=== PATIENT | male | born 1995 | race American Indian/Alaskan Native ===

== ENCOUNTER 2019-03-28 23:35 | Emergency (ER) | payer SELFPAY ==
[2019-03-28] MEDS ORDERED: SODIUM CHLORIDE 0.9% 1000 ML 1,000 ML IV ONE (23:56)
[2019-03-28] MEDS ORDERED: LORazepam 2 MG/ML VIAL IV ONE (23:56)
--- NOTE | 2019-03-29 | Emergency Department Report ---
ED Seizure HPI - General Chief Complaint: Seizure Stated Complaint: SEIZURES Time Seen by Provider: 03/28/19 23:50 Source: family Mode of arrival: Wheelchair Limitations: Altered Mental Status - History of Present Illness Initial Comments: Patient is 24-year-old male with no significant past medical history. Patient brought to the emergency room by his friend. She stated that patient had 2 episode of seizure described as generalized tonic colonic. Patient friend stated that patient had history of heavy drug abuse. Patient was altered mental status. Patient is responding to voice stimuli but not cooperative. MD Complaint: possible seizure -: unknown Description of Episode: loss of consciousness, tonic-clonic movement, post-event confusion Witnessed:: Yes Trauma: No Seizure History: none - Related Data Allergies Allergy/AdvReac Type Severity Reaction Status Date / Time Unable to Assess Allergy Unverified 03/29/19 00:14 ED Review of Systems ROS: Stated complaint: SEIZURES Other details as noted in HPI Comment: Unobtainable due to pts medical conditions ED Past Medical Hx - Past Medical History Previous Medical History?: Yes Additional medical history: Heavy drug use - Social History Smoking Status: Unknown if ever smoked Substance Use Type: Alcohol, Cocaine ED Physical Exam - General Limitations: Altered Mental Status General appearance: alert, in no apparent distress - Head Head exam: Present: atraumatic, normocephalic, normal inspection - Eye Pupils: Present: miosis - ENT ENT exam: Present: normal exam, normal orophraynx, mucous membranes moist - Neck Neck exam: Present: normal inspection, full ROM. Absent: tenderness, meningismus, lymphadenopathy, thyromegaly - Respiratory Respiratory exam: Present: normal lung sounds bilaterally - Cardiovascular Cardiovascular Exam: Present: regular rate, normal rhythm, normal heart sounds - GI/Abdominal GI/Abdominal exam: Present: soft, normal bowel sounds. Absent: distended, tenderness, guarding, rebound, rigid, organomegaly, mass, bruit, pulsatile mass, hernia - Extremities Exam Extremities exam: Present: normal inspection, full ROM, normal capillary refill. Absent: tenderness, pedal edema, joint swelling, calf tenderness - Back Exam Back exam: Present: normal inspection, full ROM. Absent: CVA tenderness (R), CVA tenderness (L), muscle spasm, paraspinal tenderness, vertebral tenderness - Neurological Exam Neurological exam: Present: altered, CN II-XII intact. Absent: motor sensory deficit - Skin Skin exam: Present: warm, intact, normal color ED Course Vital Signs 03/28/19 03/28/19 03/28/19 23:39 23:45 23:46 Temperature 98 F Pulse Rate 71 61 Respiratory 23 16 Rate Blood Pressure 121/64 121/64 O2 Sat by Pulse 100 100 Oximetry 03/29/19 03/29/19 03/29/19 00:00 00:28 00:30 Temperature Pulse Rate 67 79 61 Respiratory 21 21 18 Rate Blood Pressure 118/76 118/76 99/72 O2 Sat by Pulse 100 100 100 Oximetry 03/29/19 03/29/19 03/29/19 00:46 01:00 01:16 Temperature Pulse Rate 59 L 81 87 Respiratory 13 17 23 Rate Blood Pressure 99/72 116/71 116/71 O2 Sat by Pulse 100 100 99 Oximetry 03/29/19 03/29/19 03/29/19 01:30 01:46 02:00 Temperature Pulse Rate 84 79 68 Respiratory 22 23 34 H Rate Blood Pressure 110/81 110/81 117/62 O2 Sat by Pulse 99 100 100 Oximetry 03/29/19 03/29/19 03/29/19 02:16 02:30 02:46 Temperature Pulse Rate 78 57 L 67 Respiratory 21 21 21 Rate Blood Pressure 117/62 105/68 105/68 O2 Sat by Pulse 100 99 99 Oximetry 03/29/19 03/29/19 03/29/19 03:00 03:16 03:30 Temperature Pulse Rate 69 75 62 Respiratory 21 21 20 Rate Blood Pressure 109/62 109/62 121/76 O2 Sat by Pulse 99 99 100 Oximetry 03/29/19 03:46 Temperature Pulse Rate 68 Respiratory 22 Rate Blood Pressure 121/76 O2 Sat by Pulse 99 Oximetry ED Medical Decision Making - Lab Data Result diagrams: 03/29/19 00:29 03/29/19 00:29 - EKG Data -: EKG Interpreted by [facility] EKG shows normal: sinus rhythm Rate: normal - EKG Data Interpretation: no acute changes - Radiology Data Radiology results: report reviewed - Medical Decision Making Patient is 24-year-old male with no significant past medical history. Patient brought to the emergency room by his friend. She stated that patient had 2 episode of seizure described as generalized tonic colonic. Patient friend stated that patient had history of heavy drug abuse. Patient was altered mental status. Patient is responding to voice stimuli but not cooperative. No seizure activity observed in the ER. Labs reviewed and is unremarkable except for positive cocaine and marijuana. CT brain is negative for acute finding. Patient and his cousin strongly advised to follow-up with a jesenia rologist in the next 2-3 days and to attend to the ER if patient develop any new seizure. Critical care attestation.: If time is entered above; I have spent that time in minutes in the direct care of this critically ill patient, excluding procedure time. ED Disposition Clinical Impression: Seizure, Cocaine abuse Disposition: DC-01 TO HOME OR SELFCARE Is pt being admited?: No Condition: Stable Instructions: New-Onset Seizure in Adults (ED) Referrals: LUDIVINA TRENT MD [Primary Care Provider] - 3-5 Days
--- NOTE | 2019-03-29 00:41 | Cat Scan Report ---
CT HEAD WITHOUT CONTRAST INDICATION / CLINICAL INFORMATION: Seizure. Altered mental status. TECHNIQUE: All CT scans at this location are performed using CT dose reduction for ALARA by means of automated e xposure control. COMPARISON: None available. FINDINGS: HEMORRHAGE: None. EXTRA-AXIAL SPACES: Normal in size and morphology for the patient's age. VENTRICULAR SYSTEM: Normal in size and morphology for the patient's age. CEREBRAL PARENCHYMA: No significant abnormality. No acute territorial infarct. MIDLINE SHIFT OR HERNIATION: None. CEREBELLUM / BRAINSTEM: No significant abnormality. ORBITS: Normal as visualized. SOFT TISSUES of HEAD: No significant abnormality. CALVARIUM: No significant abnormality. PARANASAL SINUSES / MASTOID AIR CELLS: Normal as visualized. ADDITIONAL FINDINGS: None. IMPRESSION: 1. No acute intracranial abnormality. Signer Name: Lissy You MD Signed: 03/29/2019 12:36 AM Workstation Name: [id number]
[2019-03-29 00:52] LABS: Basophils # (Auto) 0.1 K/mm3 (0.0-0.1); Basophils % (Auto) 0.9 % (0.0-1.8); Eosinophils # (Auto) 0.2 K/mm3 (0.0-0.4); Eosinophils % (Auto) 2.2 % (0.0-4.3); Hemoglobin 12.5 gm/dl (11.8-15.2); Lymphocytes # (Auto) 1.7 K/mm3 (1.2-5.4); Lymphocytes % (Auto) 19.2 % (13.4-35.0); Mean Corpuscular HGB Conc 33 % (32-34); Mean Corpuscular Volume 82 fl (84-94); Monocytes # (Auto) 0.9 K/mm3 (0.0-0.8); Monocytes % (Auto) 10.1 % (0.0-7.3); Platelet Count 159 K/mm3 (140-440); Red Blood Count 4.66 M/mm3 (3.65-5.03); Red Cell Distribution Width 14.1 % (13.2-15.2)
[2019-03-29 01:10] LABS: Alanine Aminotransferase 15 units/L (7-56); Albumin 4.2 g/dL (3.9-5); BUN/Creatinine Ratio 12; Bilirubin,Direct 0.2 mg/dL (0-0.2); Blood Urea Nitrogen 11 mg/dL (9-20); Calcium 9.3 mg/dL (8.4-10.2); Hemolysis Index 5
[2019-03-29 02:58] LABS: Bilirubin,Urine NEG (Negative); Blood,Urine NEG (Negative); Color,Urine Yellow (Yellow); Hyaline Casts,Urine 1 /LPF; Mucus,Urine FEW /HPF; Protein,Urine <15 mg/dL mg/dL (Negative)
[2019-03-29 03:04] LABS: Amphetamine Screen,Urine PRESUMPTIVE NEGATIVE; Benzodiazepines Screen,Urine PRESUMPTIVE NEGATIVE; Methadone Screen,Urine PRESUMPTIVE NEGATIVE; Opiate Screen,Urine PRESUMPTIVE NEGATIVE
[2019-03-29 03:17] LABS: Cannabinoid Screen,Urine PRESUMPTIVE POSITIVE; Cocaine Screen,Urine PRESUMPTIVE POSITIVE
[2019-03-29] MEDS ORDERED: levETIRAcetam 1000 MG/NS 0.75% 1,000 MG/100 ML BAG IV ONE (04:26)
[2019-03-29 14:29] VITALS: BP 139/74
== END 2019-03-29 15:05 | disposition home or self-care (01) ==
LOC: ED 23:35
DX: R56.9 Unspecified convulsions (principal); R41.82 Altered mental status, unspecified; F14.10 Cocaine abuse, uncomplicated
CPT/HCPCS: 36415; 70450; 80048; 80076; 80307; 81001; 84484; 85025; 85045; 93005; 93010; 96361; 96365; 96375; 99285; J1953; J2060; 80320; G0480

== ENCOUNTER 2019-04-06 11:07 | Emergency (ER) | payer SELFPAY ==
--- NOTE | 2019-04-06 12:32 | Event Note ---
ED Screening Note Date of service: 04/06/19 Time: 12:31 ED Screening Note: Pt complains of rash x 2 weeks states he was treated for impetigo with keflex when the rash started and it resolved then returned rash is on his arms and hands bilaterally This initial assessment/diagnostic orders/clinical plan/treatment(s) is/are subject to change based on patients health status, clinical progression and re- assessment by fellow clinical providers in the ED. Further treatment and workup at subsequent clinical providers discretion. Patient/guardian urged not to elope from the ED as their condition may be serious if not clinically assessed and managed. Initial orders include:
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
[2019-04-06 15:00] VITALS: BP 121/64
== END 2019-04-06 14:58 | disposition home or self-care (01) ==
LOC: ED 11:07
DX: S71.151A Open bite, right thigh, initial encounter (principal); Z98.890 Other specified postprocedural states; Z79.899 Other long term (current) drug therapy; Z79.2 Long term (current) use of antibiotics; Z87.891 Personal history of nicotine dependence; W50.3XXA Accidental bite by another person, initial encounter; Y93.89 Activity, other specified; Y92.89 Other specified places as the place of occurrence of the external cause; Y99.8 Other external cause status